=== PATIENT | female | born 1985 | race Caucasian/White ===

== ENCOUNTER 2019-04-16 20:20 | Outpatient (CLI) | payer OTHER ==
[~2019-04-16] VITALS: Ht 170.2 cm; Wt 88.6 kg
[2019-04-16 21:01] VITALS: BP 118/70
[2019-04-16 21:01] LABS: MICROSCOPIC NOT IND
== END 2019-04-16 23:55 | disposition home or self-care (01) ==
LOC: LDOP 20:20 → UNDOADMIN 23:23 → LDIP 23:23 → LDOP 23:55
PROVIDERS: ATTEND Obstetrics & Gynecology
DX: Z34.83 Encounter for supervision of other normal pregnancy, third trimester (principal); Z3A.40 40 weeks gestation of pregnancy
CPT/HCPCS: 59025; 76815; 81003; 87086; 99211; G0463